=== PATIENT | male | born 1935 | race Caucasian/White ===

== ENCOUNTER → 2016-07-19 | Day surgery (SDC) | payer MEDICARE, BC ==
[~2016-07-19] VITALS: Ht 175.3 cm; Wt 112.5 kg
[~2016-07-19] MED LIST: ASCORBIC ACID500 MG PO; ASPIRIN325 MG PO; CALCIUM600 MG PO; CPAP INH; LIPITOR40 MG PO; METOPROLOL SUCC25 MG PO; NORCO 5-325 TA1 EACH; PRILOSEC20 MG PO; PROSCAR5 MG PO; PROVENTIL OR V6.7 GM INH; SPIRIVA HANDIHA1 KIT INH; STOOL SOFTENER100 M1 PO; TERAZOSIN HCL10 MG PO; VITAMIN D35000 UNI1 PO
--- NOTE | ~2016-07-19 | OR ---
PATIENT'S NAME: SHLOMO RICHARD [facility] AGE: 81 Y [address] ROOM: [place] [address] [place] [facility] [place]: 07[place]19[place] OR/Procedure Report DISCHARGE DATE: FAMILY PHYSICIAN: Esteban Lagunas MD ATTENDING PHYSICIAN: DALLIN DENNISON SURGEON: Dallin Dennison MD PRESTO LOG OPERATOR: None. 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 POSTOPERATIVE DIAGNOSIS: Right ear helix squamous cell carcinoma. PROCEDURES PERFORMED: 1. Wide local excision of right helix squamous cell carcinoma, 0.8 x 2.0 cm. 2. Single advancement flap reconstruction, 4 x 6 cm. ANESTHESIA: Local with MAC. COMPLICATIONS: None. BLOOD LOSS: 5 mL. SPECIMEN: Right ear lesion. FINDINGS: Negative frozen section margins. 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 He provided informed consent for this procedure after discussing risks, benefits, and alternatives. DESCRIPTION OF PROCEDURE: The patient was brought from the preoperative area to the operative suite and placed on the table in the supine position. All pressure points were padded. Time-out was performed, correctly identifying the patient and the procedure. MAC anesthesia was initiated, and then injection was performed with 1% lidocaine with epinephrine and 0.5% Marcaine with epinephrine in a 1:1 ratio. The ear was prepped and draped in the usual sterile fashion. Thereafter, an incision was made in a circular fashion around the lesion with a 3 mm margin and sent for frozen section margins which were negative. Reconstruction was performed with a single advancement flap designed on the posterior auricle. Wide undermining was performed. This was advanced and sutured into place with Prolene sutures. [id number] 5-0 fast gut sutures were then performed. Ointment applied, and this concluded the procedure. PATIENT'S NAME: SHLOMO [facility] AGE: 81 Y [address] ROOM: [place] [address] [place] [facility] [place]: 07/19/2016 OR/Procedure Report DISCHARGE DATE: FAMILY PHYSICIAN: Esteban Lagunas MD ATTENDING PHYSICIAN: DALLIN DENNISON MD DAVID TAMEZ/modl /[id number] d: 07/19/16 1209 t: 07/26/16 0807, OPERATIVE SUMMARY
== END | disposition disaster alternative care site (69) ==
LOC: GPOC 07-16 13:00 → GMSU 06:06 → GSDC 06:06
PROC: 0HB2XZZ Excision of Right Ear Skin, External Approach (ICD-10-PCS; principal; 2016-07-19)
DX: C44.222 Squamous cell carcinoma of skin of right ear and external auricular canal (principal); I10 Essential (primary) hypertension; I25.810 Atherosclerosis of coronary artery bypass graft(s) without angina pectoris; J44.9 Chronic obstructive pulmonary disease, unspecified; J45.909 Unspecified asthma, uncomplicated; G47.30 Sleep apnea, unspecified; E78.5 Hyperlipidemia, unspecified; Z88.8 Allergy status to other drugs, medicaments and biological substances
CPT/HCPCS: J7120

== ENCOUNTER → 2016-09-12 | Outpatient (CLI) | payer OTHER, BC ==
--- NOTE | ~2016-09-12 | NDGEN ---
PATIENT'S NAME: RICHARD KEENAN [facility] AGE: 81 Y [address] ROOM: [place] [address] LOCATION: [facility] ADMIT DATE: 09/12/2016 Neurodiagnostics DISCHARGE DATE: FAMILY PHYSICIAN: Esteban Lagunas MD ATTENDING PHYSICIAN: Isaak Saeed DATE OF PROCEDURE: 09/12/2016 PROCEDURE PERFORMED: Nerve conduction study and EMG of the bilateral upper extremities. INDICATIONS FOR PROCEDURE: Mr. Keenan is a 81-year-old male patient who has symptoms consistent with carpal tunnel syndrome in both hands. The symptoms seemed to be worse in his left hand with numbness into the median distribution primarily. He also has symptoms of less severe; however, used to be bit more present in the right upper extremity as well. Both thenar eminences particularly in the left revealed flattening and some atrophy. Nerve conduction studies were done to rule out any possibility of a median neuropathy at the wrist or an ulnar neuropathy. The median motor onset latencies were extremely slow in the left median nerve as well as delayed in the right median nerve. The amplitude was severely depressed in the left median nerve and far more than the right median nerve. The ulnar motor studies were all within normal limits. Under sensory nerve conduction studies, there were absent sensory nerve action potentials. On stimulation of the median nerve at the wrists. The ulnar sensory nerve studies were all within normal limits. Next, needle EMG was placed into the bilateral abductor pollicis brevis muscles. Both muscles revealed severely diminished recruitment of motor unit action potentials. Furthermore, there was abnormal spontaneous electrical activity in the muscle of the thenar eminence including positive sharp waves and fibrillation potentials. This was all consistent within an active neuropathic process. IMPRESSION: There is definite severe slowing at least into the left median nerve at the wrist as well as moderate to approaching severe slowing at the right median nerve. The needle EMG was similar in both abductor pollicis brevis muscles consistent with diminished recruitment of motor unit action potentials and abnormal spontaneous electrical activity. 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 ROOM: [place] [address] LOCATION: [facility] ADMIT DATE: 09/12/2016 Neurodiagnostics DISCHARGE DATE: FAMILY PHYSICIAN: Esteban Lagunas MD ATTENDING PHYSICIAN: Isaak Saeed surgery is recommended. MD STEFANIE WHITFIELD/ritesh /[id number] dtt: 09/26/16 1741 , EDMAR ERNANDEZ dtd: 09/12/16 1827
== END | disposition disaster alternative care site (69) ==
LOC: GNEU 14:55
DX: R20.2 Paresthesia of skin (principal)